=== PATIENT | male | born 1975 | race Caucasian/White ===

== ENCOUNTER 2017-06-08 13:24 | Emergency (ER) | payer MEDICAID ==
[~2017-06-08] VITALS: Ht 175.3 cm; Wt 72.7 kg
[~2017-06-08 13:24] MED LIST: ALBU8.5H8 INH; GUAI600T45 PO; METH4TAB3 PO; NO HOME MEDS
[2017-06-08] MEDS ORDERED: TETanus/Pertussis (Acell)/Diphther VAC/PF (Tdap-Adult) 0.5ml syringe IM ONE (15:30)
[2017-06-08] MEDS ORDERED: LIDOcaine 1.5% w/epinephrine 1:200,000 5ml ampul IJ ONE (15:30)
[2017-06-08] MEDS ORDERED: SULF1TAB49 PO (15:57)
[2017-06-08] MEDS ORDERED: CEPH250T PO (15:57)
[2017-06-08 16:17] VITALS: BP 123/86
== END 2017-06-08 16:18 | disposition home or self-care (01) ==
LOC: ER 13:24
DX: L02.413 Cutaneous abscess of right upper limb (principal); J45.909 Unspecified asthma, uncomplicated; G89.29 Other chronic pain; M54.9 Dorsalgia, unspecified; F32.9 Major depressive disorder, single episode, unspecified; F41.9 Anxiety disorder, unspecified; F12.90 Cannabis use, unspecified, uncomplicated; F11.90 Opioid use, unspecified, uncomplicated; Z59.0 Homelessness; Z87.442 Personal history of urinary calculi; Z79.899 Other long term (current) drug therapy
CPT/HCPCS: 10060; 90471; 90715; 99283; A4565; A6446; A6449; J3490

== ENCOUNTER 2017-07-17 21:02 | Emergency (ER) | payer MEDICAID ==
[~2017-07-17] VITALS: Ht 175.3 cm; Wt 58.2 kg
[~2017-07-17 21:02] MED LIST changes: +ALBU8HFA PO; +CEPH250T PO; +CEPH500C5 PO; +IBUP-1984 PO; +PRED20TA PO; +SULF1TAB49 PO
[2017-07-17 21:23] VITALS: BP 119/84
[2017-07-18] MEDS ORDERED: vancomycin/NS 1 GM ADD-VANTAGE 250 ML IV ONE (01:30)
== END 2017-07-18 02:01 | disposition left against medical advice (07) ==
LOC: ER 21:02
DX: L02.414 Cutaneous abscess of left upper limb (principal); L03.114 Cellulitis of left upper limb; F19.10 Other psychoactive substance abuse, uncomplicated; J45.909 Unspecified asthma, uncomplicated; G89.29 Other chronic pain; F12.10 Cannabis abuse, uncomplicated; F11.10 Opioid abuse, uncomplicated; Z87.442 Personal history of urinary calculi; Z59.0 Homelessness; Z79.899 Other long term (current) drug therapy
CPT/HCPCS: 29105; 99281; 99283

== ENCOUNTER → 2017-12-04 | Emergency (ER) | payer MEDICAID ==
[~2017-12-04] VITALS: Ht 175.3 cm; Wt 72.7 kg
[~2017-12-04] MED LIST changes: -ALBU8HFA PO; -IBUP-1984 PO; -PRED20TA PO; -SULF1TAB49 PO; +ketorolac trometh. 30mg/ml inj. IV ONE; +morphine 4 MG/ML inj SYRINge IV ONE; +normal saline 1000ML IV soln IVB ONE; +ondansetron/PF 4mg/2ml inj IV ONE
[2017-12-04 17:08] VITALS: BP 130/89
[2017-12-04 17:56] LABS: CLARITY,URINE CLEAR (Clear); COLOR,URINE YELLOW (Yellow); GLUCOSE, URINE NEGATIVE (Neg); KETONES,URINE NEGATIVE (Neg); LEUKOCYTE ESTERASE ,URINE NEGATIVE (Neg); NITRITES, URINE NEGATIVE (Neg); OCCULT BLOOD,URINE NEGATIVE (Neg); PH,URINE 6.5 (4.8-8.0); PROTEIN,URINE NEGATIVE (Neg)
[2017-12-04 17:58] LABS: UA COLLECTION TYPE VOIDED
== END | disposition home or self-care (01) ==
LOC: ER 16:49
DX: R10.9 Unspecified abdominal pain (principal); R11.2 Nausea with vomiting, unspecified; R19.7 Diarrhea, unspecified; F12.90 Cannabis use, unspecified, uncomplicated; F11.90 Opioid use, unspecified, uncomplicated; J45.909 Unspecified asthma, uncomplicated; G89.29 Other chronic pain; Z79.899 Other long term (current) drug therapy; Z59.0 Homelessness
CPT/HCPCS: 81003; 99283; J7030

== ENCOUNTER 2018-04-26 00:23 | Emergency (ER) | payer MEDICAID ==
[~2018-04-26] VITALS: Ht 177.8 cm; Wt 79.0 kg
[~2018-04-26 00:23] MED LIST changes: -ketorolac trometh. 30mg/ml inj. IV ONE; -morphine 4 MG/ML inj SYRINge IV ONE; -normal saline 1000ML IV soln IVB ONE; -ondansetron/PF 4mg/2ml inj IV ONE
[2018-04-26 00:24] VITALS: BP 148/90
== END 2018-04-26 01:09 | disposition home or self-care (01) ==
LOC: ER 00:24
DX: F10.129 Alcohol abuse with intoxication, unspecified (principal); Z02.89 Encounter for other administrative examinations; I10 Essential (primary) hypertension; J45.909 Unspecified asthma, uncomplicated; G89.29 Other chronic pain; F12.90 Cannabis use, unspecified, uncomplicated; F11.90 Opioid use, unspecified, uncomplicated; Z79.2 Long term (current) use of antibiotics; Z79.899 Other long term (current) drug therapy; Y90.9 Presence of alcohol in blood, level not specified
CPT/HCPCS: 99283

== ENCOUNTER → 2018-05-11 | Emergency (ER) | payer MEDICAID ==
[~2018-05-11] VITALS: Ht 175.3 cm; Wt 78.3 kg
[~2018-05-11] MED LIST changes: +AMOX-580 PO
[2018-05-11 11:05] VITALS: BP 157/85
== END | disposition home or self-care (01) ==
LOC: ER 10:35
DX: J32.0 Chronic maxillary sinusitis (principal); J45.909 Unspecified asthma, uncomplicated; F12.90 Cannabis use, unspecified, uncomplicated; F11.90 Opioid use, unspecified, uncomplicated; G89.29 Other chronic pain; Z59.0 Homelessness; Z79.899 Other long term (current) drug therapy; Z87.442 Personal history of urinary calculi
CPT/HCPCS: 99283

== ENCOUNTER 2018-09-30 18:13 | Emergency (ER) | payer MEDICAID ==
[~2018-09-30] VITALS: Ht 175.3 cm; Wt 76.0 kg
[~2018-09-30 18:13] MED LIST changes: -AMOX-580 PO; -CEPH250T PO; -CEPH500C5 PO
[2018-09-30] MEDS ORDERED: normal saline 1000ML IV soln IVB ONE (18:35)
[2018-09-30] MEDS ORDERED: morphine 4 MG/ML inj SYRINge IV PRN (18:35)
[2018-09-30] MEDS ORDERED: ondansetron/PF 4mg/2ml inj IV ONE (18:35)
[2018-09-30] MEDS ORDERED: famotidine/PF 10 mg/ml inj IV ONE (18:40)
[2018-09-30 18:51] LABS: CLARITY,URINE CLEAR (Clear); COLOR,URINE YELLOW (Yellow); GLUCOSE, URINE NEGATIVE (Neg); KETONES,URINE NEGATIVE (Neg); LEUKOCYTE ESTERASE ,URINE NEGATIVE (Neg); NITRITES, URINE NEGATIVE (Neg); OCCULT BLOOD,URINE NEGATIVE (Neg); PH,URINE 5.5 (4.8-8.0); PROTEIN,URINE NEGATIVE (Neg); UROBILINOGEN,URINE 0.2 E.U/dL (0.2-1.0)
[2018-09-30 18:53] LABS: UA COLLECTION TYPE NON-SPECIFIED
[2018-09-30 19:03] LABS: URINE AMPHETAMINE SCREEN NEGATIVE (Neg); URINE BARBITUATE SCREEN NEGATIVE (Neg); URINE BENZODIAZEPINES SCREEN NEGATIVE (Neg); URINE CANNABINOID SCREEN NEGATIVE (Neg); URINE COCAINE SCREEN NEGATIVE (Neg); URINE METHADONE SCREEN NEGATIVE (Neg); URINE OPIATE SCREEN POSITIVE (Neg); URINE PHENCYCLIDINE SCREEN NEGATIVE (Neg)
[2018-09-30 20:04] LABS: BASOPHILS # (AUTO) 0.1 X10'3 (0-0.2); BASOPHILS % (AUTO) 0.6 % (0-1); EOSINOPHILS # (AUTO) 0.1 X10'3 (0-0.9); EOSINOPHILS % (AUTO) 1.6 % (0-6); HEMATOCRIT 46.1 % (42.0-52.0); HEMOGLOBIN 16.2 g/dl (14.0-17.9); LYMPHOCYTES # (AUTO) 2.6 X10'3 (1.1-4.8); LYMPHOCYTES % (AUTO) 31.6 % (21-51); MEAN CORPUSCULAR HEMOGLOBIN 33.6 PG (27.0-31.0); MEAN CORPUSCULAR HGB CONC 35.1 g/dL (33.0-36.5); MEAN CORPUSCULAR VOLUME 95.8 FL (78-98); MONOCYTES # (AUTO) 0.5 X10'3 (0-0.9); MONOCYTES % (AUTO) 6.3 % (2-12); NEUTROPHILS % (AUTO) 59.9 % (42-75); PLATELET COUNT 224 X10'3 (140-440); RED BLOOD COUNT 4.82 X10'6 (4.70-6.10); RED CELL DISTRIBUTION WIDTH 12.6 % (11.5-14.5); WHITE BLOOD COUNT 8.3 X10'3 (4.5-11.0)
[2018-09-30] MEDS ORDERED: ketorolac trometh. 30mg/ml inj. IV ONE (20:20)
--- NOTE | 2018-09-30 20:31 | NUR ---
PTS IV INFILTRATED - IV REMOVED. PT REQUESTS NOT TO HAVE NEW IV INSERTED UNTIL WE NEED ANOTHER ONE. PT HAD IV TORADOL ORDERED BUT STATES HIS PAIN IS NOT THAT BAD RIGHT NOW. ADVISED HIM TO LET ME KNOW IF THE PAIN RETURNS AND THAT WE CAN ALWAYS ASK THE PROVIDERTO SWITCH IT TO IM.
[2018-09-30 20:34] LABS: ALANINE AMINOTRANSFERASE 46 U/L (12-78); ALBUMIN 3.8 G/DL (3.4-5.0); ALKALINE PHOSPHATASE 78 IU/L (46-116); ANION GAP 11 (8-16); BILIRUBIN,TOTAL 0.3 MG/DL (0.1-1.0); BLOOD UREA NITROGEN 10 MG/DL (7-18); BUN/CREATININE RATIO 10.3 (5.4-32.0); CALCIUM 8.9 MG/DL (8.5-10.1); CHLORIDE 106 MMOL/L (99-107); CREATININE 0.97 MG/DL (0.60-1.10); ETHANOL 0.112 GM/DL (0.0-0.010); GLUCOSE 76 MG/DL (70-104); LIPASE 140 U/L (73-393); POTASSIUM 3.6 MMOL/L (3.5-5.1); SODIUM 140 MMOL/L (135-145); TOTAL CARBON DIOXIDE 22.6 MMOL/L (24-32); TOTAL PROTEIN 7.8 G/DL (6.4-8.2); TROPONIN I < 0.04 NG/ML (0.0-0.05); eGFR 85 ML/MIN
[2018-09-30] MEDS ORDERED: ONDA4TAB6 PO (20:39)
[2018-09-30] MEDS ORDERED: PANT-47 PO (20:39)
[2018-09-30] MEDS ORDERED: sucralfate 1 gm tablet PO ONE (20:40)
[2018-09-30] MEDS ORDERED: LIDOcaine Viscous 15ml cup PO ONE (20:40)
[2018-09-30] MEDS ORDERED: mag hydrox/Alum hydrox/simeth 30ml oral suspension PO ONE (20:40)
[2018-09-30 20:51] VITALS: BP 144/74
[2018-09-30 20:58] LABS: ASPARTATE AMINO TRANSFERASE 26 U/L (10-37)
== END 2018-09-30 20:53 | disposition home or self-care (01) ==
LOC: ER 18:14
DX: K29.00 Acute gastritis without bleeding (principal); F10.929 Alcohol use, unspecified with intoxication, unspecified; J45.909 Unspecified asthma, uncomplicated; G89.29 Other chronic pain; F12.90 Cannabis use, unspecified, uncomplicated; F11.90 Opioid use, unspecified, uncomplicated; Z79.899 Other long term (current) drug therapy; Y90.9 Presence of alcohol in blood, level not specified
CPT/HCPCS: 36415; 80053; 80305; 80320; 81003; 83690; 84484; 85025; 93005; 96361; 96374; 96375; 99284; J1885; J2270; J2405; J3490; J7030

== ENCOUNTER 2019-06-07 17:14 | Emergency (ER) | payer MEDICAID ==
[~2019-06-07] VITALS: Ht 175.3 cm; Wt 72.2 kg
[~2019-06-07 17:14] MED LIST changes: +ONDA4TAB6 PO; +PANT-47 PO
[2019-06-07 17:20] VITALS: BP 124/78
[2019-06-07] MEDS ORDERED: iohexol 300mg/ml 100ml inj. ONE (18:23)
== END 2019-06-07 19:08 | disposition left against medical advice (07) ==
LOC: ER 17:14
DX: L02.413 Cutaneous abscess of right upper limb (principal); J45.909 Unspecified asthma, uncomplicated; G89.29 Other chronic pain; F12.90 Cannabis use, unspecified, uncomplicated; F11.90 Opioid use, unspecified, uncomplicated; Z87.442 Personal history of urinary calculi; Z79.899 Other long term (current) drug therapy
CPT/HCPCS: 99284; Q9967

== ENCOUNTER 2020-01-20 05:16 | Emergency (ER) | payer MEDICAID ==
[~2020-01-20] VITALS: Ht 175.3 cm; Wt 72.7 kg
--- NOTE | 2020-01-20 05:23 | NUR ---
x ray at bedside to x ray left hand
[2020-01-20] MEDS ORDERED: ketorolac trometh. 30mg/ml inj. IV ONE (05:50)
[2020-01-20] MEDS ORDERED: mupirocin 2% ointment 22GM TP ONE (05:50)
[2020-01-20] MEDS ORDERED: clindamycin 300mg/D5W 50mL 50 ML IV ONE (05:50)
[2020-01-20] MEDS ORDERED: CLIN150C8 PO (05:51)
[2020-01-20 06:28] VITALS: BP 142/104
== END 2020-01-20 06:29 | disposition home or self-care (01) ==
LOC: ER 05:17
DX: S60.552A Superficial foreign body of left hand, initial encounter (principal); J45.909 Unspecified asthma, uncomplicated; G89.29 Other chronic pain; F41.9 Anxiety disorder, unspecified; F32.9 Major depressive disorder, single episode, unspecified; F12.90 Cannabis use, unspecified, uncomplicated; F11.90 Opioid use, unspecified, uncomplicated; Z87.442 Personal history of urinary calculi; Z72.89 Other problems related to lifestyle; Z88.1 Allergy status to other antibiotic agents; Z79.899 Other long term (current) drug therapy; W45.8XXA Other foreign body or object entering through skin, initial encounter; Y93.89 Activity, other specified; Y92.89 Other specified places as the place of occurrence of the external cause; Y99.8 Other external cause status
CPT/HCPCS: 73120; 96365; 96375; 99284; J1885; J3490

== ENCOUNTER 2022-05-01 14:36 | Emergency (ER) | payer MEDICAID ==
[~2022-05-01 14:36] MED LIST changes: +ALBU8.5H17 INH; -ALBU8.5H8 INH; +CLIN150C8 PO
== END 2022-05-01 18:37 | disposition home or self-care (01) ==
LOC: ER 14:36
DX: R10.9 Unspecified abdominal pain (principal); Z53.21 Procedure and treatment not carried out due to patient leaving prior to being seen by health care provider

== ENCOUNTER 2022-06-19 14:11 | Emergency (ER) | payer MEDICAID ==
[~2022-06-19] VITALS: Ht 175.3 cm; Wt 72.0 kg
[~2022-06-19 14:11] MED LIST changes: +ALBU8HFA PO
[2022-06-19 14:31] VITALS: BP 143/87
[2022-06-19 14:59] LABS: CLARITY,URINE CLEAR (Clear); COLOR,URINE YELLOW (Yellow); GLUCOSE, URINE NEGATIVE (Neg); KETONES,URINE NEGATIVE (Neg); LEUKOCYTE ESTERASE ,URINE NEGATIVE (Neg); NITRITES, URINE NEGATIVE (Neg); OCCULT BLOOD,URINE NEGATIVE (Neg); PROTEIN,URINE NEGATIVE (Neg); UROBILINOGEN,URINE 0.2 E.U/dL (0.2-1.0)
[2022-06-19 15:01] LABS: EOSINOPHILS % (AUTO) 0.6 % (0-6); LYMPHOCYTES # (AUTO) 1.1 X10'3 (1.1-4.8); LYMPHOCYTES % (AUTO) 14.1 % (21-51); MEAN PLATELET VOLUME 8.8 FL (7.4-10.4); MONOCYTES # (AUTO) 0.5 X10'3 (0-0.9); NEUTROPHILS # (AUTO) 5.9 X10'3 (1.8-7.7)
[2022-06-19 15:02] LABS: UA COLLECTION TYPE CLN CATCH MIDSTREAM
[2022-06-19 15:03] LABS: BASOPHILS % (AUTO) 0.3 % (0-1); HEMATOCRIT 42.1 % (42.0-52.0); HEMOGLOBIN 14.1 g/dl (14.0-17.9); MEAN CORPUSCULAR HEMOGLOBIN 29.7 PG (27.0-31.0); MEAN CORPUSCULAR HGB CONC 33.4 g/dL (33.0-36.5); MEAN CORPUSCULAR VOLUME 88.8 FL (78-98); MONOCYTES % (AUTO) 6.6 % (2-12); NEUTROPHILS % (AUTO) 78.4 % (42-75); PLATELET COUNT 316 X10'3 (140-440); RED BLOOD COUNT 4.74 X10'6 (4.70-6.10); RED CELL DISTRIBUTION WIDTH 13.8 % (11.5-14.5); WHITE BLOOD COUNT 7.5 X10'3 (4.5-11.0)
[2022-06-19 15:15] LABS: ALANINE AMINOTRANSFERASE 36 U/L (12-78); ALBUMIN 3.8 G/DL (3.4-5.0); ALBUMIN/GLOBULIN RATIO 0.9 (1.1-1.5); ALKALINE PHOSPHATASE 75 IU/L (46-116); ANION GAP 6 (8-16); ASPARTATE AMINO TRANSFERASE 24 U/L (10-37); BILIRUBIN,TOTAL 0.3 MG/DL (0.1-1.0); BLOOD UREA NITROGEN 17 MG/DL (7-18); BUN/CREATININE RATIO 19.8 (5.4-32.0); CALCIUM 9.1 MG/DL (8.5-10.1); CHLORIDE 101 MMOL/L (99-107); CREATININE 0.86 MG/DL (0.60-1.10); GLUCOSE 100 MG/DL (70-104); LIPASE < 50 U/L (73-393); POTASSIUM 4.4 MMOL/L (3.5-5.1); SODIUM 136 MMOL/L (135-145); TOTAL CARBON DIOXIDE 29.2 MMOL/L (24-32); eGFR > 90 ML/MIN
[2022-06-19] MEDS ORDERED: PRED10TA23 PO (16:39)
== END 2022-06-19 16:47 | disposition home or self-care (01) ==
LOC: ER 14:11
DX: L23.7 Allergic contact dermatitis due to plants, except food (principal); J45.909 Unspecified asthma, uncomplicated; G89.29 Other chronic pain; M54.50 Low back pain, unspecified; F12.90 Cannabis use, unspecified, uncomplicated; Z59.00 Homelessness unspecified
CPT/HCPCS: 36415; 80053; 81003; 83690; 85025; 99283

== ENCOUNTER 2022-07-02 11:18 | Emergency (ER) | payer MEDICAID ==
[~2022-07-02] VITALS: Ht 175.3 cm; Wt 77.3 kg
[~2022-07-02 11:18] MED LIST changes: +PRED10TA23 PO
[2022-07-02 12:50] VITALS: BP 111/67
[2022-07-02] MEDS ORDERED: SULF1TAB49 PO (14:17)
[2022-07-02] MEDS ORDERED: LIDOCAINE 2%/EPI 1:100,000 inj. Multi-dose 20 ML VIAL IJ ONE (14:30)
[2022-07-02] MEDS ORDERED: sulfamethoxazole/trimethoprim DS (800/160mg) tablet PO ONE (14:45)
[2022-07-02] MEDS ORDERED: bacitracin 15gm ointment TP ONE (14:50)
== END 2022-07-02 14:55 | disposition home or self-care (01) ==
LOC: ER 12:37
DX: L02.413 Cutaneous abscess of right upper limb (principal); J45.909 Unspecified asthma, uncomplicated; N20.0 Calculus of kidney; F41.9 Anxiety disorder, unspecified; F32.A Depression, unspecified; M54.50 Low back pain, unspecified; F12.90 Cannabis use, unspecified, uncomplicated; F11.90 Opioid use, unspecified, uncomplicated; Z59.00 Homelessness unspecified; Z72.89 Other problems related to lifestyle; Z79.899 Other long term (current) drug therapy
CPT/HCPCS: 10060; 99283

== ENCOUNTER 2022-07-07 09:33 | Emergency (ER) | payer MEDICAID ==
[~2022-07-07] VITALS: Ht 175.3 cm; Wt 75.0 kg
[~2022-07-07 09:33] MED LIST changes: +SULF1TAB49 PO
[2022-07-07 09:44] VITALS: BP 131/78
[2022-07-07] MEDS ORDERED: CEPH-585 PO (09:55)
[2022-07-07] MEDS ORDERED: bacitracin 15gm ointment TP ONE (10:00)
== END 2022-07-07 10:09 | disposition home or self-care (01) ==
LOC: ER 09:33
DX: L02.511 Cutaneous abscess of right hand (principal); L02.512 Cutaneous abscess of left hand; J45.909 Unspecified asthma, uncomplicated; G89.29 Other chronic pain; M54.9 Dorsalgia, unspecified; F31.9 Bipolar disorder, unspecified; F12.10 Cannabis abuse, uncomplicated; Z59.00 Homelessness unspecified; Z79.899 Other long term (current) drug therapy; Z79.1 Long term (current) use of non-steroidal anti-inflammatories (NSAID); Z79.2 Long term (current) use of antibiotics
CPT/HCPCS: 99283